=== PATIENT | male | born 1990 | race Caucasian/White ===

== ENCOUNTER 2019-07-23 12:07 | Emergency (ER) | payer SELFPAY ==
--- NOTE | 2019-07-23 13:37 | RAD REPORT ---
EXAM DESCRIPTION: RAD - Hand Right 3 View - 07/23/2019 1:22 pm CLINICAL HISTORY: trauma Trauma, pain COMPARISON: No comparisons FINDINGS: Soft tissue swelling is seen in the region of the metacarpal heads. Old traumatic changes are suspected involving the metacarpal. Hardware is present in the fourth metacarpal. An acute fractu re is not seen.
--- NOTE | 2019-07-23 13:40 | ER ---
Nurse's Notes [facility] Name: Giuseppe De Santiago Age: 29 yrs Sex: Male : 1990 Arrival Date: 07/23/2019 Time: 12:10 Bed 23 Private MD: Diagnosis: Contusion of right hand Presentation: 07/22 12:26 Chief complaint: Patient states: punched a wooden fence last night wit right hand, has iw hx of surgery to hand. Coronavirus screen: The patient has NOT traveled to [place] in the past 14 days. Proceed with normal triage procedures. Ebola Screen: Patient negative for fever greater than or equal to 101.5 degrees Fahrenheit, and additional compatible Ebola Virus Disease symptoms Patient denies exposure to infectious person. Patient denies travel to an Ebola-affected area in the 21 days before illness onset. No symptoms or risks identified at this time. Initial Sepsis Screen: Does the patient meet any 2 criteria? No. Patient's initial sepsis screen is negative. Does the patient have a suspected source of infection? No. Patient's initial sepsis screen is negative. Risk Assessment: Do you want to hurt yourself or someone else? Patient reports no desire to harm self or others. 12:26 Method Of Arrival: Ambulatory iw 12:26 Acuity: TENZIN 4 iw Historical: - Allergies: 12:27 No Known Allergies; iw - Home Meds: 12:27 None [Active]; iw - PMHx: 12:27 pulmonary valve stenosis; iw - PSHx: 12:27 right hand; iw - Immunization history:: Adult Immunizations not up to date. - Social history:: Smoking status: Patient reports the use of cigarette tobacco products. Screenin:47 Abuse screen: Denies threats or abuse. Denies injuries from another. Nutritional aj1 screening: No deficits noted. Tuberculosis screening: No symptoms or risk factors identified. Assessment: 12:47 General: Appears in no apparent distress. comfortable, Behavior is calm, cooperative, aj1 appropriate for age. Pain: Complains of pain in right hand. Neuro: Level of Consciousness is awake, alert, obeys commands, Oriented to person, place, time, situation. Cardiovascular: Patient's skin is warm and dry. Respiratory: Airway is patent Respiratory effort is even, unlabored, Respiratory pattern is regular, symmetrical. GI: No signs and/or symptoms were reported involving the gastrointestinal system. : No signs and/or symptoms were reported regarding the genitourinary system. EENT: No signs and/or symptoms were reported regarding the EENT system. Derm: No signs and/or symptoms reported regarding the dermatologic system. Skin is pink, warm \T\ dry. normal. Musculoskeletal: Swelling present in right hand. 13:23 Reassessment: Patient appears in no apparent distress at this time. No changes from aj1 previously documented assessment. Patient and/or family updated on plan of care and expected duration. Pain level reassessed. Patient is alert, oriented x 3, equal unlabored respirations, skin warm/dry/pink. Vital Signs: 12:27 BP 117 / 62; Pulse 87; Resp 16; Pulse Ox 97% on R/A; Weight 68.04 kg; Height 5 ft. 7 iw in. (170.18 cm); Pain 8/10; 12:27 Body Mass Index 23.49 (68.04 kg, 170.18 cm) iw ED Course: 12:10 Patient arrived in ED. as 12:27 Triage completed. iw 12:27 Arm band placed on. iw 12:29 Trent Ellis PA is PHCP. [facility] 12:29 Jamaal Chilel MD is Attending Physician. [facility] 12:45 Ophelia Funes, RN is Primary Nurse. aj1 12:47 Patient has correct armband on for positive identification. Bed in low position. Call aj1 light in reach. Side rails up X 1. 12:47 No provider procedures requiring assistance completed. aj1 13:23 Hand Right 3 View XRAY In Process Unspecified. EDMS 13:40 Jose Antonio Morse MD is Referral Physician. [facility] 13:53 Patient did not have IV access during this emergency room visit. aj1 Administered Medications: No medications were administered Outcome: 13:40 Discharge ordered by . [facility] 13:54 Discharged to home ambulatory. aj1 13:54 Condition: good 13:54 Discharge instructions given to patient, Instructed on discharge instructions, follow up and referral plans. Demonstrated understanding of instructions, follow-up care. 13:54 Patient left the ED. aj1 Signatures: Dispatcher [employer] EDOphelia Olmstead, RN RN aj Trent Ellis PA PA jmm Martinez, Amelia as Williams, Irene, RN RN iw
--- NOTE | 2019-07-23 13:40 | EDPHYS ---
Physician Documentation [facility] Name: Giuseppe De Santiago Age: 29 yrs Sex: Male : 1990 Arrival Date: 07/23/2019 Time: 12:10 Bed 23 Private MD: ED Physician Jamaal Chilel HPI: 07/22 12:39 This 29 yrs old Male presents to ER via Ambulatory with complaints of Hand jmm Injury. 12:39 The patient or guardian reports injury, pain. Onset: The symptoms/episode jmm began/occurred acutely, just prior to arrival. Modifying factors: The symptoms are alleviated by nothing, the symptoms are aggravated by nothing. Associated signs and symptoms: Pertinent negatives: cyanosis distally, decreased sensation distally, fever, nausea, numbness distally, tingling distally, vomiting. The patient has experienced a previous episode. This is a 29 year old male with a history of pulmonary valve stenosis that presents to the ED with complaints of hand pain and swelling beginning yesterday after punching a fence. Patient denies other injury. Patient is not UTD on immunizations. . Historical: - Allergies: 12:27 No Known Allergies; iw - Home Meds: 12:27 None [Active]; iw - PMHx: 12:27 pulmonary valve stenosis; iw - PSHx: 12:27 right hand; iw - Immunization history:: Adult Immunizations not up to date. - Social history:: Smoking status: Patient reports the use of cigarette tobacco products. ROS: 12:39 Constitutional: Negative for fever, chills, and weight loss, Cardiovascular: Negative jmm for chest pain, palpitations, and edema, Respiratory: Negative for shortness of breath, cough, wheezing, and pleuritic chest pain. 12:39 MS/extremity: Positive for swelling. 12:39 Skin: Positive for abrasion(s). 12:39 All other systems are negative. Exam: 12:39 Constitutional: This is a well developed, well nourished patient who is awake, alert, jmm and in no acute distress. Head/Face: atraumatic. Eyes: EOMI, no conjunctival erythema appreciated ENT: Moist Mucus Membranes Neck: Trachea midline, Supple Chest/axilla: Normal chest wall appearance and motion. Cardiovascular: Regular rate and rhythm. No edema appreciated Respiratory: Normal respirations, no respiratory distress appreciated Abdomen/GI: Non distended, soft Back: Normal ROM 12:39 Musculoskeletal/extremity: swelling noted to the right hand, crepitus noted to the 5th metacarpal. painful rom appreciatred, compartments are soft, NVI. 12:39 Skin: abrasions noted to the right hand. 12:39 Neuro: Orientation: is normal, Mentation: is normal, Memory: is normal. 12:39 Psych: Behavior/mood is pleasant, cooperative. Vital Signs: 12:27 BP 117 / 62; Pulse 87; Resp 16; Pulse Ox 97% on R/A; Weight 68.04 kg; Height 5 ft. 7 iw in. (170.18 cm); Pain 8/10; 12:27 Body Mass Index 23.49 (68.04 kg, 170.18 cm) iw MDM: 12:29 Patient medically screened. [facility] 13:38 Data reviewed: vital signs, nurses notes. Counseling: I had a detailed discussion with hakeem the patient and/or guardian regarding: the historical points, exam findings, and any diagnostic results supporting the discharge/admit diagnosis, the need for outpatient follow up, to return to the emergency department if symptoms worsen or persist or if there are any questions or concerns that arise at home. ED course: Xray is negative. Patient is advised to repeat xray if pain continues after 1 week. Patient is given hand surgery follow up for reevaluation. Patient otherwise given strict return precautions. Patient understood and agrees with the plan of care. . 03 12:39 Order name: Hand Right 3 View XRAY; Complete Time: 13:38 [facility] Administered Medications: No medications were administered Disposition: 18:19 Co-signature as Attending Physician, Jamaal Chilel MD I agree with the assessment and [facility] plan of care. Disposition: 07/23/19 13:40 Discharged to Home. Impression: Contusion of right hand. - Condition is Stable. - Discharge Instructions: Hand Contusion. - Medication Reconciliation Form, Thank You Letter, Antibiotic Education, Prescription Opioid Use form. - Follow up: Jose Antonio Morse MD; When: 1 week; Reason: Recheck today's complaints, Continuance of care, Re-evaluation by your physician. Signatures: Dispatcher [employer] EDMS Ophelia Funes RN RN aj1 Jamaal Chilel MD MD cha Mickail, Joel, PA PA jmm Cosme, Nereida, RN RN iw Corrections: (The following items were deleted from the chart) 13:54 13:40 07/23/2019 13:40 Discharged to Home. Impression: Contusion of right hand. aj1 Condition is Stable. Forms are Medication Reconciliation Form, Thank You Letter, Antibiotic Education, Prescription Opioid Use. Follow up: Jose Antonio Morse; When: 1 week; Reason: Recheck today's complaints, Continuance of care, Re-evaluation by your physician. kita
[2019-07-23 13:59] VITALS: BP 117/62; O2SAT 97
== END 2019-07-23 13:54 | disposition home or self-care (01) ==
LOC: ER 12:07
DX: S60.221A Contusion of right hand, initial encounter (principal); W22.8XXA Striking against or struck by other objects, initial encounter; Y93.9 Activity, unspecified; Y92.9 Unspecified place or not applicable
CPT/HCPCS: 99282

== ENCOUNTER 2020-04-06 15:44 | Emergency (ER) | payer SELFPAY ==
--- NOTE | 2020-04-06 17:49 | RAD REPORT ---
EXAM DESCRIPTION: RAD - Hand Right 3 View - 04/06/2020 5:40 pm CLINICAL HISTORY: Right hand pain status post injury FINDINGS: A mildly displaced acute fracture involves the base of the fifth metacarpal. Sideplate and screws affix an old fracture fourth metacarpal. Old fracture involves the fifth metacar pal neck No dislocation
--- NOTE | 2020-04-06 18:02 | ER ---
Nurse's Notes [facility] Name: Giuseppe De Santiago Age: 30 yrs Sex: Male : 1990 Arrival Date: 04/06/2020 Time: 15:46 Bed 19 Private MD: Diagnosis: Displaced fracture of base of fifth metacarpal bone, right hand Presentation: 04/06 16:10 Chief complaint: Patient states: "I hurt my hand on 03/26 and it is still hurting and if jd3 I try to pick up man anything i end up dropping it." right hand injury. Coronavirus screen: At this time, the client does not indicate any symptoms associated with coronavirus-19. Ebola Screen: Patient negative for fever greater than or equal to 101.5 degrees Fahrenheit, and additional compatible Ebola Virus Disease symptoms. Initial Sepsis Screen: Does the patient meet any 2 criteria? No. Patient's initial sepsis screen is negative. Does the patient have a suspected source of infection? No. Patient's initial sepsis screen is negative. Risk Assessment: Do you want to hurt yourself or someone else? Patient reports no desire to harm self or others. Onset of symptoms was March 26, 2020. 16:10 Method Of Arrival: Ambulatory jd3 16:10 Acuity: TENZIN 4 jd3 Historical: - Allergies: 16:12 No Known Allergies; jd3 - Home Meds: 16:12 None [Active]; jd3 - PMHx: 16:12 Pulmonary valve stenosis; jd3 - PSHx: 16:12 right hand; jd3 - Immunization history:: Adult Immunizations unknown. - Social history:: Smoking status: Patient reports the use of cigarette tobacco products, denies chronic smoking, but will smoke occasionally. Screenin:13 Abuse screen: Denies threats or abuse. Nutritional screening: No deficits noted. Tuberculosis screening: No symptoms or risk factors identified. Fall Risk None identified. Assessment: 17:40 General: Appears uncomfortable, Behavior is calm, cooperative, appropriate for age. Pain: Complains of pain in right hand. Neuro: Level of Consciousness is awake, alert, obeys commands, Oriented to person, place, time, situation, Appropriate for age Chemist Helper are weak on right. Cardiovascular: Heart tones S1 S2 present Capillary refill < 3 seconds Patient's skin is warm and dry. Pulses are palpable in right radial artery and left radial artery. Respiratory: Airway is patent Respiratory effort is even, unlabored, Respiratory pattern is regular, symmetrical. GI: No signs and/or symptoms were reported involving the gastrointestinal system. Derm: Skin is intact, is healthy with good turgor, Skin is dry. Musculoskeletal: Circulation, motion, and sensation intact. Capillary refill < 3 seconds, Range of motion: Swelling present in right hand Reports pain in right hand since 03/26/2020. Vital Signs: 16:12 BP 118 / 77; Pulse 60; Resp 16 S; Temp 97.3(TE); Pulse Ox 98% on R/A; Weight 70.31 kg jd3 (R); Height 5 ft. 7 in. (170.18 cm) (R); Pain 6/10; 16:12 Body Mass Index 24.28 (70.31 kg, 170.18 cm) [facility] ED Course: 15:46 Patient arrived in ED. as 16:11 Triage completed. [facility] 16:14 Arm band placed on. [facility] 17:28 Naman Pedroza NP is PHCP. pm1 17:28 Alonzo Mauro MD is Attending Physician. pm1 17:40 XRAY Hand RIGHT 3 View In Process Unspecified. EDSC 18:09 Linda Altamirano, RN is Primary Nurse. 18:13 Patient has correct armband on for positive identification. Bed in low position. Call light in reach. Adult w/ patient. 18:13 Patient did not have IV access during this emergency room visit. 18:27 Orthoglass splint: Ulnar gutter/Boxer splint applied on right forearm. [facility] 18:57 No provider procedures requiring assistance completed. Administered Medications: No medications were administered Outcome: 18:01 Discharge ordered by . pm1 18:30 Discharged to home ambulatory. 18:30 Condition: good 18:30 Discharge instructions given to patient, Instructed on discharge instructions, follow up and referral plans. Demonstrated understanding of instructions, follow-up care, splint care. 18:57 Patient left the ED. Signatures: Dispatcher [employer] EDMS [place] Alanis Patrick, NP [employer] 1 Rashawn Erwin RN RN [facility] Linda Altamirano RN [facility] Tad Moses [facility] Corrections: (The following items were deleted from the chart) 16:12 16:10 Chief complaint: Patient states: "I hurt my hand on 03/26 and it is still hurting jd3 and if I try to pick up man anything i end up dropping it." jd3 16:14 16:12 Pulse 60bpm; Resp 16bpm; Spontaneous; Pulse Ox 98% RA; Temp 97.3F Temporal; 70.31 jd3 kg Reported; Height 5 ft. 7 in. Reported; BMI: 24.2; Pain 6/10; jd3
--- NOTE | 2020-04-06 18:02 | EDPHYS ---
Physician Documentation [facility] Name: Giuseppe De Santiago Age: 30 yrs Sex: Male : 1990 Arrival Date: 04/06/2020 Time: 15:46 Bed 19 Private MD: ED Physician Alonzo Mauro HPI: 04/06 17:36 This 30 yrs old Male presents to ER via Ambulatory with complaints of Hand pm1 Injury, Hand Swelling. 17:36 The patient or guardian reports pain, swelling. The complaints affect the medial aspect pm1 of right hand. Context: resulted from punching a wooden post 11 days ago. Modifying factors: The symptoms are alleviated by holding still, the symptoms are aggravated by movement. Associated signs and symptoms: Pertinent negatives: cyanosis distally, decreased sensation distally, numbness distally, tingling distally. Severity of symptoms: in the emergency department the symptoms have improved. The patient has experienced similar episodes in the past, history of multiple boxer's fractures in the past. The patient has not recently seen a physician, and does not have an established primary care provider. Historical: - Allergies: 16:12 No Known Allergies; jd3 - Home Meds: 16:12 None [Active]; jd3 - PMHx: 16:12 Pulmonary valve stenosis; jd3 - PSHx: 16:12 right hand; jd3 - Immunization history:: Adult Immunizations unknown. - Social history:: Smoking status: Patient reports the use of cigarette tobacco products, denies chronic smoking, but will smoke occasionally. ROS: 18:01 Constitutional: Negative for fever, chills, and weight loss, Cardiovascular: Negative pm1 for chest pain, palpitations, and edema, Respiratory: Negative for shortness of breath, cough, wheezing, and pleuritic chest pain. 18:01 Neuro: Negative for headache, weakness, numbness, tingling, and seizure. 18:01 MS/extremity: Positive for pain, swelling, tenderness, of the medial aspect of right hand. 18:01 Skin: Positive for ecchymosis, swelling, of the medial aspect of right hand. 18:01 All other systems are negative. Exam: 18:04 Constitutional: This is a well developed, well nourished patient who is awake, alert, pm1 and in no acute distress. 18:04 Cardiovascular: Exam negative for acute changes, Rate: normal, Rhythm: regular, Pulses: no pulse deficits are appreciated. 18:04 Respiratory: Exam negative for acute changes, respiratory distress, shortness of breath. 18:04 Musculoskeletal/extremity: Extremities: grossly normal except: noted in the medial aspect of right hand: swelling, tenderness, There is no evidence of scissoring of right fingers. Right fifth finger has full range of motion intact. Patient making a fist with right hand has proper alignment of fingers, Circulation is intact in all extremities. Pulses: brisk capillary refill to right fingers, the right hand Sensation intact. Vital Signs: 16:12 BP 118 / 77; Pulse 60; Resp 16 S; Temp 97.3(TE); Pulse Ox 98% on R/A; Weight 70.31 kg jd3 (R); Height 5 ft. 7 in. (170.18 cm) (R); Pain 6/10; 16:12 Body Mass Index 24.28 (70.31 kg, 170.18 cm) jd3 Procedures: 18:51 Splinting: Splint applied to medial aspect of right hand using Orthoglass splint, pm1 applied by tech. Examined by me, post splint application: neurovascular intact, 2+ distal pulses palpable, brisk capillary refill noted, Patient tolerated well. MDM: 17:29 Patient medically screened. pm1 18:00 Data reviewed: vital signs. Data interpreted: Pulse oximetry: on room air is 98 %. pm1 Interpretation: normal. Counseling: I had a detailed discussion with the patient and/or guardian regarding: the historical points, exam findings, and any diagnostic results supporting the discharge/admit diagnosis, radiology results, the need for outpatient follow up, for definitive care, a hand specialist, to return to the emergency department if symptoms worsen or persist or if there are any questions or concerns that arise at home. 18:00 ED course: Patient refused pain medications in the ER and as prescription. pm1 04/06 17:19 Order name: XRAY Hand RIGHT 3 View; Complete Time: 17:50 rn 04/06 17:51 Order name: Ulnar Gutter splint; Complete Time: 18:27 pm1 Administered Medications: No medications were administered Disposition: 04/07 07:04 Co-signature as Attending Physician, Alonzo Mauro MD. rn Disposition: 04/06/20 18:01 Discharged to Home. Impression: Displaced fracture of base of fifth metacarpal bone, right hand. - Condition is Stable. - Discharge Instructions: Boxer's Fracture, Cast or Splint Care, Adult. - Medication Reconciliation Form, Thank You Letter, Antibiotic Education, Prescription Opioid Use form. - Follow up: Emergency Department; When: As needed; Reason: Worsening of condition. Follow up: Private Physician; When: 2 - 3 days; Reason: Recheck today's complaints, Continuance of care, Re-evaluation by your physician. - Problem is new. - Symptoms have improved. Signatures: Dispatcher [employer] EDMS Alonzo Mauro MD MD rn Naman Pedroza, [employer] pm1 Rashawn Erwin RN RN jd3 Harris, Amy, RN RN ah Corrections: (The following items were deleted from the chart) 04/06 18:08 18:04 Musculoskeletal/extremity: Extremities: grossly normal except: noted in the pm1 medial aspect of right hand: swelling, tenderness, There is no evidence of scissoring of right fingers. Right fifth finger with full range of motion intact, Circulation is intact in all extremities. Pulses: brisk capillary refill to right fingers, the right hand Sensation intact. pm1 18:57 18:01 04/06/2020 18:01 Discharged to Home. Impression: Displaced fracture of base of ah fifth metacarpal bone, right hand. Condition is Stable. Forms are Medication Reconciliation Form, Thank You Letter, Antibiotic Education, Prescription Opioid Use. Follow up: Emergency Department; When: As needed; Reason: Worsening of condition. Follow up: Private Physician; When: 2 - 3 days; Reason: Recheck today's complaints, Continuance of care, Re-evaluation by your physician. Problem is new. Symptoms have improved. pm1
[2020-04-06 22:00] VITALS: BP 118/77; TEMP 97.3; O2SAT 98
== END 2020-04-06 18:57 | disposition home or self-care (01) ==
LOC: ER 15:44
PROC: 2W3CX1Z Immobilization of Right Lower Arm using Splint (ICD-10-PCS; principal; 2020-04-06)
DX: S62.316A Displaced fracture of base of fifth metacarpal bone, right hand, initial encounter for closed fracture (principal); W22.09XA Striking against other stationary object, initial encounter; Y93.89 Activity, other specified; Y92.9 Unspecified place or not applicable; F17.210 Nicotine dependence, cigarettes, uncomplicated
CPT/HCPCS: 99283

== ENCOUNTER 2020-04-13 20:46 | Emergency (ER) | payer SELFPAY ==
[2020-04-13 22:35] LABS: Urine Blood NEGATIVE (NEG); Urine Glucose NEGATIVE (NEG); Urine Protein NEGATIVE (NEG); Urine Specific Gravity 1.025 (1.005-1.030)
[2020-04-13 22:42] LABS: Absolute Lymphocytes (CBC) 2.2 K/uL (0.7-4.9); Basophils % 0.8 % (0-1.3); Lymphocytes % 25.7 % (15.3-44.8); RBC Red Blood Cell Count 4.96 M/uL (4.33-5.43)
[2020-04-13 22:45] LABS: Protime INR 1.1
[2020-04-13 22:51] LABS: Barbiturates NEGATIVE (NEGATIVE); Benzodiazepines NEGATIVE (NEGATIVE); Cocaine NEGATIVE (NEGATIVE); METHAMPHETAM NEGATIVE (NEGATIVE); Methadone NEGATIVE (NEGATIVE); Opiates NEGATIVE (NEGATIVE); Phencyclidine NEGATIVE (NEGATIVE); THC Cannibis NEGATIVE (NEGATIVE)
[2020-04-13 23:13] LABS: ALT/SGPT 27 U/L (12-78); AST/SGOT 21 U/L (15-37); Albumin 4.6 g/dL (3.4-5.0); Alkaline Phosphatase 79 U/L (45-117); BUN Blood Urea Nitrogen 13 mg/dL (7-18); Bicarbonate 28 mmol/L (21-32); Bilirubin Direct 0.2 mg/dL (0-0.2); Bilirubin Total 0.7 mg/dL (0.2-1.0); Glucose Level 87 mg/dL (74-106); Potassium 3.7 mmol/L (3.5-5.1); Protein, Total 7.8 g/dL (6.4-8.2); Sodium Level 141 mmol/L (136-145)
--- NOTE | 2020-04-14 01:39 | EDPHYS ---
Physician Documentation [facility] Name: Giuseppe De Santiago Age: 30 yrs Sex: Male : 1990 Arrival Date: 04/13/2020 Time: 20:48 Bed 5 Private MD: ED Physician Nickolas Dos Santos HPI: 04/13 21:57 This 30 yrs old Male presents to ER via Ambulatory with complaints of mh7 Depression. 21:57 The patient presents to the emergency department with depression, over a relationship, mh7 over work. 21:58 Onset: The symptoms/episode began/occurred 3 month(s) ago, and became persistent 3 mh7 weeks ago. Past psychiatric history: Prior diagnosis: no previous psychiatric diagnosis known, Psychiatric medications include: none, Primary psychiatric physician: the patient does not have a primary psychiatric physician, the patient has not had a prior suicide gesture, the patient does not have a previous inpatient psychiatric history, the patient's last psychiatric treatment was none. Associated signs and symptoms: Pertinent positives; depression, Pertinent negatives: abdominal pain, anxiety, chest pain, chills, delusions, fever, hallucinations, headache, homicidal ideation, nausea, night sweats, palpitations, paranoia, shortness of breath, substance abuse, suicide ideation, tremor, vomiting. Severity of symptoms: At their worst the symptoms were moderate 2 day(s) ago, in the emergency department the symptoms have improved moderately. Historical: - Allergies: 21:13 No Known Allergies; ll1 - PMHx: 21:13 Pulmonary valve stenosis; Depression; ll1 - PSHx: 21:13 right hand; ll1 - Immunization history:: Flu vaccine is not up to date. - Social history:: Smoking status: Patient reports the use of cigarette tobacco products, denies chronic smoking, but will smoke occasionally. ROS: 21:58 Constitutional: Negative for fever, chills, and weight loss, Eyes: Negative for injury, mh7 pain, redness, and discharge, ENT: Negative for injury, pain, and discharge, Neck: Negative for injury, pain, and swelling, Cardiovascular: Negative for chest pain, palpitations, and edema, Respiratory: Negative for shortness of breath, cough, wheezing, and pleuritic chest pain, Abdomen/GI: Negative for abdominal pain, nausea, vomiting, diarrhea, and constipation, Back: Negative for injury and pain, : Negative for injury, bleeding, discharge, and swelling, MS/Extremity: Negative for injury and deformity, Skin: Negative for injury, rash, and discoloration, Neuro: Negative for headache, weakness, numbness, tingling, and seizure, Allergy/Immunology: Negative for hives, rash, and allergies, Endocrine: Negative for neck swelling, polydipsia, polyuria, polyphagia, and marked weight changes, Hematologic/Lymphatic: Negative for swollen nodes, abnormal bleeding, and unusual bruising. Exam: 21:58 Constitutional: This is a well developed, well nourished patient who is awake, alert, mh7 and in no acute distress. Head/Face: Normocephalic, atraumatic. Eyes: Pupils equal round and reactive to light, extra-ocular motions intact. Lids and lashes normal. Conjunctiva and sclera are non-icteric and not injected. Cornea within normal limits. Periorbital areas with no swelling, redness, or edema. Neck: Trachea midline, no thyromegaly or masses palpated, and no cervical lymphadenopathy. Supple, full range of motion without nuchal rigidity, or vertebral point tenderness. No Meningismus. Chest/axilla: Normal chest wall appearance and motion. Nontender with no deformity. No lesions are appreciated. Cardiovascular: Regular rate and rhythm with a normal S1 and S2. No gallops, murmurs, or rubs. Normal PMI, no JVD. No pulse deficits. Respiratory: Lungs have equal breath sounds bilaterally, clear to auscultation and percussion. No rales, rhonchi or wheezes noted. No increased work of breathing, no retractions or nasal flaring. Abdomen/GI: Soft, non-tender, with normal bowel sounds. No distension or tympany. No guarding or rebound. No evidence of tenderness throughout. Back: No spinal tenderness. No costovertebral tenderness. Full range of motion. Skin: Warm, dry with normal turgor. Normal color with no rashes, no lesions, and no evidence of cellulitis. MS/ Extremity: Pulses equal, no cyanosis. Neurovascular intact. Full, normal range of motion. Neuro: Awake and alert, GCS 15, oriented to person, place, time, and situation. Cranial nerves II-XII grossly intact. Motor strength 5/5 in all extremities. Sensory grossly intact. Cerebellar exam normal. Normal gait. 21:58 Psych: Behavior/mood is depressed, Affect is calm, Oriented to person, place, time, Patient has no thoughts/intents to harm self or others. Judgement / Insight is normal. Memory is normal. Delusions/hallucinations are not present. Vital Signs: 21:09 BP 116 / 89; Pulse 70; Resp 17; Temp 98.1; Pulse Ox 99% ; Weight 69.85 kg; Height 5 ft. ll1 7 in. (170.18 cm); Pain 0/10; 21:09 Body Mass Index 24.12 (69.85 kg, 170.18 cm) ll1 MDM: 04/14 01:39 Patient medically screened. [facility] 01:41 Data reviewed: vital signs, nurses notes, lab test result(s), CBC, drug level(s), [facility] electrolytes, urinalysis, urine drug screen, EKG. Data interpreted: Pulse oximetry: on room air is 99 %. Interpretation: normal. Counseling: I had a detailed discussion with the patient and/or guardian regarding: the historical points, exam findings, and any diagnostic results supporting the discharge/admit diagnosis, lab results, the need for outpatient follow up, to return to the emergency department if symptoms worsen or persist or if there are any questions or concerns that arise at home. Response to treatment: the patient's symptoms have mildly improved after treatment. 06:06 ED course: NAD, VSS. Patient was evaluated by [facility] and will be given [facility] outpatient follow up for treatment. He is not suicidal or homicidal. . 04/13 21:56 Order name: Acetaminophen; Complete Time: 23:27 7 04/13 21:56 Order name: Basic Metabolic Panel; Complete Time: 23:27 7 04/13 21:56 Order name: CBC with Diff; Complete Time: 23:02 7 04/13 21:56 Order name: ETOH Level; Complete Time: 23:02 7 04/13 21:56 Order name: Hepatic Function; Complete Time: 23:27 7 04/13 21:56 Order name: PT-INR; Complete Time: 23:02 7 04/13 21:56 Order name: Ptt, Activated; Complete Time: 23:02 7 04/13 21:56 Order name: Salicylate; Complete Time: 23:02 [facility] 04/13 21:56 Order name: Urine Drug Screen; Complete Time: 23:02 [facility] 04/13 21:56 Order name: EKG; Complete Time: 21:57 [facility] 04/13 21:56 Order name: EKG - Nurse/Tech; Complete Time: 22:30 [facility] 04/13 21:56 Order name: IV Saline Lock; Complete Time: 22:30 [facility] 04/13 21:56 Order name: Labs collected and sent; Complete Time: 22:30 [facility] 04/13 22:31 Order name: Urine Dipstick--Ancillary (enter results); Complete Time: 23:02 [facility] 04/13 21:56 Order name: Urine Dipstick-Ancillary (obtain specimen); Complete Time: :30 [facility] Administered Medications: No medications were administered Disposition: 04/14/20 01:39 Discharged to Home. Impression: Depression. - Condition is Stable. - Discharge Instructions: Major Depressive Disorder, [id number]. - Medication Reconciliation Form, Thank You Letter, Antibiotic Education, Prescription Opioid Use form. - Follow up: Private Physician; When: 1 - 2 days; Reason: Worsening of condition, Recheck today's complaints, Continuance of care, Re-evaluation by your physician. Follow up: Sandeep Polk MD; When: 1 - 2 days; Reason: Worsening of condition, Recheck today's complaints. - Problem is an ongoing problem. - Symptoms have improved. Signatures: Dispatcher [employer] Eddi Arechiga RN RN rv Lewis, Lynsay, RN RN 1 Nickolas Dos Santos MD MD 7 Corrections: (The following items were deleted from the chart) 01:44 01:39 04/14/2020 01:39 Discharged to Home. Impression: Depression. Condition is Stable. rv Forms are Medication Reconciliation Form, Thank You Letter, Antibiotic Education, Prescription Opioid Use. Follow up: Private Physician; When: 1 - 2 days; Reason: Worsening of condition, Recheck today's complaints, Continuance of care, Re-evaluation by your physician. Follow up: Sandeep Polk; When: 1 - 2 days; Reason: Worsening of condition, Recheck today's complaints. Problem is an ongoing problem. Symptoms have improved. 7
--- NOTE | 2020-04-14 01:39 | ER ---
Nurse's Notes [facility] Name: Giuseppe De Santiago Age: 30 yrs Sex: Male : 1990 Arrival Date: 04/13/2020 Time: 20:48 Bed 5 Private MD: Diagnosis: Depression Presentation: 04/13 21:09 Chief complaint: Friend and/or Co-Worker states: Friend brought him for mental health ll1 eval. States he was very emotional when drinking ETOH. Patient denies SI or HI. States he has a history of depression, no medications for this. Emotional extremes lately. Coronavirus screen: Client denies travel out of the [place] in the last 14 days. At this time, the client does not indicate any symptoms associated with coronavirus-19. Ebola Screen: Patient denies travel to an Ebola-affected area in the 21 days before illness onset. Initial Sepsis Screen: Does the patient meet any 2 criteria? No. Patient's initial sepsis screen is negative. Does the patient have a suspected source of infection? No. Patient's initial sepsis screen is negative. Risk Assessment: Do you want to hurt yourself or someone else? Patient reports no desire to harm self or others. Onset of symptoms was June 24, 2018. 21:09 Method Of Arrival: Ambulatory ll1 21:09 Acuity: TENZIN 2 ll1 Triage Assessment: 21:39 General: Appears Behavior is calm, crying, EMOTIONAL. Pain: Denies pain. EENT: No signs rv and/or symptoms were reported regarding the EENT system. Neuro: Level of Consciousness is awake, alert, obeys commands, Oriented to person, place, time, situation. Cardiovascular: Patient's skin is warm and dry. Respiratory: Airway is patent. Derm: Skin is intact. Historical: - Allergies: 21:13 No Known Allergies; ll1 - PMHx: 21:13 Pulmonary valve stenosis; Depression; ll1 - PSHx: 21:13 right hand; ll1 - Immunization history:: Flu vaccine is not up to date. - Social history:: Smoking status: Patient reports the use of cigarette tobacco products, denies chronic smoking, but will smoke occasionally. Screenin:37 Abuse screen: Denies threats or abuse. Nutritional screening: No deficits noted. rv Tuberculosis screening: No symptoms or risk factors identified. Fall Risk None identified. Assessment: 21:34 Reassessment: PATIENT DOES NOT DENY HE IS A THREAT TO HIMSELF OR TO OTHERS, BUT HAS NO rv CONCRETE PLAN. FRIEND IS PRESENT AT BEDSIDE. 04/14 00:30 Reassessment: patient is talking to the screener via videocall. rv 01:36 Reassessment: RECOMMENDED FOR OUT PATIENT CONSULTATION. PATIENT AGREED. rv Psych: 04/13 21:50 Subjective: Patient's mood is sad, angry, Having thoughts of suicide. Denies suicidal rv plan. Objective: Patient is cooperative. Interventions: Removed personal items and placed in bag. Patient placed in hospital gown. Searched person for dangerous items. Belonging list filled out. Suicide Risk Assessment: Sad Person Scale: Sex of patient: Male: Score 1 point. Age of patient: Score 1 point if patient 15-34. Depression: Score 1 point if signs of depression are present. Previous Attempt: Score 0 point if patient has not previously attempted suicide. Substance Abuse: Score 0 point if patient does not abuse alcohol or drugs. Rational Thinking: Score 1 point if patient is lacking rational thinking. Social Support: Score 0 if social support is present/available. Organized Plan: Score 0 if patient did not have an organized plan in place. Chronic Sickness: Score 0 point if patient does not have a chronic illness, debilitating, or severe disorder. TOTAL POINTS: If total points are 3-4, proposed clinical action is close follow-up/consider hospitalization. Safety Checks: Personal items have been removed. Door is closed to patient's room. Visitors are present. Patient uses. Commitment: Patient will be a voluntary commitment. Vital Signs: 21:09 BP 116 / 89; Pulse 70; Resp 17; Temp 98.1; Pulse Ox 99% ; Weight 69.85 kg; Height 5 ft. ll1 7 in. (170.18 cm); Pain 0/10; 21:09 Body Mass Index 24.12 (69.85 kg, 170.18 cm) ll1 ED Course: 20:48 Patient arrived in ED. ag3 21:13 Triage completed. ll1 21:13 Arm band placed on. ll1 21:14 Nickolas Dos Santos MD is Attending Physician. mh7 21:14 Eddi Martínez RN is Primary Nurse. rv 21:37 Patient has correct armband on for positive identification. Placed in gown. Bed in low rv position. Cardiac monitoring not applicable on this patient. 22:30 Initial lab(s) drawn, by me, sent to lab. Urine collected: clean catch specimen, clear, rv EKG done, by ED staff, reviewed by Nickolas Dos Santos MD. Inserted saline lock: 20 gauge in left antecubital area, using aseptic technique. Blood collected. 23:42 called the [facility] Crisis Line at [phone]/ spoke to Meagan/ she will have a mw2 screener evaluate patient. 04/14 01:35 No provider procedures requiring assistance completed. IV discontinued, intact, rv bleeding controlled, No redness/swelling at site. Pressure dressing applied. 01:38 Sandeep Polk MD is Referral Physician. 7 Administered Medications: No medications were administered Outcome: 01:39 Discharge ordered by . [facility] 01:44 Discharged to home ambulatory, with friend. rv 01:44 Condition: good 01:44 Discharge instructions given to patient, Instructed on discharge instructions, follow up and referral plans. Demonstrated understanding of instructions, follow-up care. 01:44 Patient left the ED. rv Signatures: Nuris Buckner mw2 Eddi Martínez RN RN Shayy Jones ag3 Mariajose Clement RN RN 1 Nickolas Dos Santos MD MD mh7 Corrections: (The following items were deleted from the chart) 04/13 23:54 23:42 called the [facility] Line at [phone]/ spoke to Alondra/ she will mw2 have a screener evaluate patient. mw2
[2020-04-14 07:57] VITALS: BP 116/89; TEMP 98.1; O2SAT 99
== END 2020-04-14 01:44 | disposition home or self-care (01) ==
LOC: ER 20:46
DX: F32.9 Major depressive disorder, single episode, unspecified (principal); F17.210 Nicotine dependence, cigarettes, uncomplicated
CPT/HCPCS: 36415; 80048; 80076; 80307; 80320; 80329; 81003; 85025; 85610; 85730; 93005; 99284